=== PATIENT | male | born 1995 | race African-American/Black ===

== ENCOUNTER 2017-03-07 15:30 | Emergency (ER) | payer BC ==
[2017-03-07] MEDS ORDERED: DIPHENHYDRAMINE HCL 50 MG/ML VIAL IV ONE (15:59)
[2017-03-07] MEDS ORDERED: LORAZEPAM INJ 2 MG/1 ML VIAL IV ONE (15:59)
--- NOTE | 2017-03-07 16:05 | ER Document Report ---
ED General - General Chief Complaint: Tremor Stated Complaint: POSSIBLE MUSCLE SPASMS Time Seen by Provider: 03/07/17 15:59 TRAVEL OUTSIDE OF THE [place] IN LAST 30 DAYS: No - HPI Patient complains to provider of: Dystonia Notes: Young man presents with torticollis his head turned right muscle spasm. Patient started on antipsychotics but 3 days ago. Was just released from [facility]. They contacted his doctor. Concerned about extrapyramidal symptoms. Patient does not know what medication he is on. Until he will stop it. Patient denies any nausea vomiting or any other changes any trauma or any other issues - Related Data Allergies/Adverse Reactions: No Known Allergies Allergy (Unverified 03/07/17 16:01) Past Medical History - Social History Smoking Status: Current Every Day Smoker Frequency of alcohol use: Occasional Drug Abuse: None Family History: None Patient has suicidal ideation: No Patient has homicidal ideation: No Renal/ Medical History: Denies: Hx Peritoneal Dialysis Psychiatric Medical History: Reports: Hx Attention Deficit Hyperactivity Disorder Review of Systems - Review of Systems Musculoskeletal: Muscle stiffness Physical Exam - Vital signs Vitals: Temp Pulse Resp BP Pulse Ox 98.7 F 101 H 16 134/74 H 99 03/07/17 15:36 03/07/17 15:36 03/07/17 15:36 03/07/17 15:36 03/07/17 15:36 Interpretation: Normal - General General appearance: Appears well, Alert - HEENT Head: Normocephalic, Atraumatic Eyes: Normal Pupils: PERRL Neck: Other - Head turn to the right secondary torticollis - Respiratory Respiratory status: No respiratory distress Chest status: Nontender Breath sounds: Normal Chest palpation: Normal - Cardiovascular Rhythm: Regular Heart sounds: Normal auscultation Murmur: No - Abdominal Inspection: Normal Distension: No distension Bowel sounds: Normal Tenderness: Nontender Organomegaly: No organomegaly - Back Back: Normal, Nontender - Extremities General upper extremity: Normal inspection, Nontender, Normal color, Normal ROM , Normal temperature General lower extremity: Normal inspection, Nontender, Normal color, Normal ROM , Normal temperature, Normal weight bearing. No: Flores's sign - Neurological Neuro grossly intact: Yes Cognition: Normal Orientation: AAOx4 [place] Coma Scale Eye Opening: Spontaneous Gabriel Coma Scale Verbal: Oriented Gabriel Coma Scale Motor: Obeys Commands Gabriel Coma Scale Total: 15 Speech: Normal Motor strength normal: LUE, RUE, LLE, RLE Sensory: Normal - Psychological Associated symptoms: Normal affect, Normal mood - Skin Skin Temperature: Warm Skin Moisture: Dry Skin Color: Normal Course - Re-evaluation Re-evalutation: 03/07/17 16:40 Given IV diphenhydramine, IV Ativan. Patient's symptoms resolved. Patient feeling back to himself.. Patient is amazed. Patient instructed to stop taking antipsychotic medication. Contact a psychiatrist tomorrow morning. - Vital Signs Vital signs: Temp Pulse Resp BP Pulse Ox 98.7 F 101 H 16 134/74 H 99 03/07/17 15:36 03/07/17 15:36 03/07/17 15:36 03/07/17 15:36 03/07/17 15:36 Discharge - Discharge Clinical Impression: Dystonia Condition: Stable Disposition: HOME, SELF-CARE Instructions: Extrapyramidal Symptoms ([facility]) Additional Instructions: See your PCP [facility], call your psychiatrist
[2017-03-07 16:49] VITALS: BP 130/80
== END 2017-03-07 17:16 | disposition home or self-care (01) ==
LOC: ER 15:30
DX: G24.9 Dystonia, unspecified (principal); F17.200 Nicotine dependence, unspecified, uncomplicated
CPT/HCPCS: 99283; 96374; 96375; J1200; J2060

== ENCOUNTER 2017-03-08 16:22 | Emergency (ER) | payer BC ==
[2017-03-08 18:35] VITALS: BP 140/84
== END 2017-03-08 17:30 | disposition left against medical advice (07) ==
LOC: ER 16:22
DX: Z53.21 Procedure and treatment not carried out due to patient leaving prior to being seen by health care provider (principal)

== ENCOUNTER 2017-03-08 18:21 | Emergency (ER) | payer BC ==
[2017-03-08] MEDS ORDERED: DIPHENHYDRAMINE HCL 25 MG CAPSULE PO ONE (19:58)
[2017-03-08] MEDS ORDERED: LORAZEPAM 1 MG TABLET PO ONE (19:58)
--- NOTE | 2017-03-08 19:59 | ER Document Report ---
HPI - HPI Patient complains to provider of: Dystonias Pain Level: Denies Context: Patient is a 21-year-old male comes emergency department for chief complaint of having dystonias secondary to antipsychotic he was given, he was discharged from [facility] after being given a shot of "decanoate", he came here yesterday with a dystonic reaction to the medication, given Ativan and Benadryl, prescribed Ativan and Benadryl, patient states that he was unable to get into his psychiatrist (out of town versus bad weather), went to urgent care and they sent him here. He states he is looking for a short-term supply of the same medications until he can see his psychiatrist for additional management. Past Medical History - General Information source: Patient - Social History Smoking Status: Never Smoker Drug Abuse: None Lives with: Family Family History: None Renal/ Medical History: Denies: Hx Peritoneal Dialysis Psychiatric Medical History: Reports: Hx Attention Deficit Hyperactivity Disorder Surgical Hx: Negative Vertical Provider Document - CONSTITUTIONAL General Appearance: WD/WN, No Apparent Distress - INFECTION CONTROL TRAVEL OUTSIDE OF THE [place] IN LAST 30 DAYS: No - HEENT HEENT: Atraumatic, Normal ENT Exam, Normocephalic - NECK Neck: Normal Inspection - RESPIRATORY Respiratory: Breath Sounds Normal, No Respiratory Distress O2 Sat by Pulse Oximetry: 99 - CARDIOVASCULAR Cardiovascular: Regular Rate, Regular Rhythm - GI/ABDOMEN Gastrointestinal: Abdomen Soft, Abdomen Non-Tender - BACK Back: Normal Inspection - MUSCULOSKELETAL/EXTREMETIES Musculoskeletal/Extremeties: MAEW, FROM, Non-Tender - NEURO Level of Consciousness: Awake, Alert, Appropriate - DERM Integumentary: Warm, Dry, No Rash Course - Re-evaluation Re-evalutation: Very specific documentation of patient coming in with a dystonia, unfortunately he appears to have been given a month-long shot of Haldol, patient has close follow-up but his psychiatrist is closed today with recent inclement weather. Patient given short prescription of the same from prior because of his inability to follow-up, will follow closely, discussed return precautions. Patient states understanding and agreement. - Vital Signs Vital signs: Temp Pulse Resp BP Pulse Ox 99.2 F 88 140/84 H 99 03/08/17 18:33 03/08/17 18:33 03/08/17 18:33 03/08/17 18:33 Discharge - Discharge Clinical Impression: Dystonia Condition: Stable Disposition: HOME, SELF-CARE Additional Instructions: Call the psychiatric facility and confirmed the medication that you were given. Take the prescribed medications. Follow-up closely with your psychiatrist for additional management. Return to the emergency department for any concerning symptoms or if something is not right. Prescriptions: Diphenhydramine HCl 25 mg PO Q6H #30 tablet Lorazepam [Ativan 1 mg Tablet] 1 mg PO Q6 #15 tab
[2017-03-08 20:02] VITALS: BP 134/90
== END 2017-03-08 20:22 | disposition home or self-care (01) ==
LOC: ER 18:21
DX: G24.9 Dystonia, unspecified (principal)
CPT/HCPCS: 99281